=== PATIENT | male | born 1950 | race Caucasian/White ===

== ENCOUNTER 2024-01-29 03:25 | Inpatient (IN) ==
[2024-01-29] MEDS ORDERED: Piperacillin/Tazobac 3.375 BAG 3.375 GM/100 ML BAG IV ONE (03:31)
[2024-01-29] MEDS ORDERED: Morphine 10 MG/ML VIAL (1 ml) IV ONE ×2 (03:31→06:35)
[2024-01-29] MEDS ORDERED: Ondansetron 4 mg VIAL 2 MG/ML 2 ml VIAL IV ONE (03:34)
[2024-01-29] MEDS: Morphine 10 MG/ML VIAL (1 ml) IV ONE ×2 (03:53→06:39)
[2024-01-29] MEDS: Ondansetron 4 mg VIAL 2 MG/ML 2 ml VIAL IV ONE (03:57)
[2024-01-29] MEDS: Pantoprazole VIAL 40 MG VIAL IV ONE (04:00)
[2024-01-29] MEDS: PANTOPRAZOLE IV SCH (04:07)
[2024-01-29] MEDS: Lactated Ringers 1000 ml BAG 1,000 ML IV ONE (04:07)
[2024-01-29] MEDS: Piperacillin/Tazobac 3.375 BAG 3.375 GM/100 ML BAG IV ONE (04:07)
[2024-01-29] MEDS: NS 0.9% IV SCH (04:07)
[2024-01-29 04:09] LABS: ABS Basophils 0.1 10^3/uL (0.0-0.1); ABS Lymphocytes 1.8 10^3/uL (1.0-4.8); ABS Monocytes 0.8 10^3/uL (0.0-1.1); ABS Neutrophils 11.4 10^3/uL (1.5-7.6); Hematocrit 28.8 % (38-53); Hemoglobin 9.4 g/dL (13.2-16.3); Lymphocyte % 12.8 %; Mean Corpuscular Hemoglobin 32.8 pg (27-33); Mean Corpuscular Hgb Conc 32.7 g/dL (31-36); Mean Corpuscular Volume 100.4 fL (80-97); Mean Platelet Volume 8.9 fL (7.5-11.2); Platelet Count 255 10^3/uL (150-450); Red Blood Count 2.86 10^6/uL (4.06-5.63); Red Cell Distribution Width 13.7 % (12-17); White Blood Count 14.1 10^3/uL (3.6-10.2)
[2024-01-29 04:11] LABS: Activated Partial Thrombo Time 23.5 seconds (26.0-38.0); INR 1.72 (0.83-1.13)
[2024-01-29 04:43] LABS: Albumin 2.5 g/dL (3.2-5.2); Albumin/Globulin Ratio 1.1 (1-3); C Reactive Protein 11.27 mg/L (<8.01); Calcium 7.8 mg/dL (8.6-10.3); Creatinine, Serum 1.46 mg/dL (0.67-1.17); Globulin 2.2 g/dL (2-4); Potassium 5.6 mmol/L (3.5-5.0); Total Bilirubin 1.4 mg/dL (0.2-1.0); Total Protein 4.7 g/dL (6.4-8.9); eGFR CKD-EPI 50.8 (>60)
[2024-01-29 06:18] LABS: Hematocrit 21.3 % (38-53); Hemoglobin 6.8 g/dL (13.2-16.3)
[2024-01-29] MEDS ORDERED: Prochlorperazine 5 mg/ml 2 ml VIAL (10 mg) IV ONE (06:41)
[2024-01-29] MEDS: Prochlorperazine 5 mg/ml 2 ml VIAL (10 mg) IV ONE (06:45)
[2024-01-29] MEDS: Iodixanol (CONTRAST) 320 MG/ML 100 ML SDV IV ONE (07:14)
[2024-01-29] MEDS ORDERED: cefTRIAXone 1 gm/50 mL D5W 1 GM/50 ML BAG IV ONE (07:17)
[2024-01-29] MEDS: cefTRIAXone 1 gm/50 mL D5W 1 GM/50 ML BAG IV ONE (07:33)
[2024-01-29] MEDS: Octreotide Acetate 50 MCG in NS 0.9% 50 ML 50 ML IV ONE (08:24)
[2024-01-29] MEDS ORDERED: Phenylephrine IV 10 MG/ML 1 ml VIAL ONE (09:09)
[2024-01-29] MEDS ORDERED: Buffered Lidocaine 1% SYRIN 1 ml ONE (09:23)
[2024-01-29] MEDS ORDERED: Propofol 10 MG/ML 20 ML BTL ONE (09:50)
[2024-01-29] MEDS ORDERED: Etomidate 20 mg/10 ml 2 MG/ML 10 ml VIAL ONE (09:50)
[2024-01-29] MEDS ORDERED: Rocuronium 50 mg VIAL 10 mg/ml 5 ml VIAL (50 mg) ONE (09:50)
[2024-01-29] MEDS ORDERED: Lidocaine 2% PF 5 ML VIAL ONE (09:50)
[2024-01-29] MEDS ORDERED: Midazolam 2 mg/2 ml VIAL 1 mg/ml 2 ml VIAL (2 mg) ONE (09:51)
[2024-01-29] MEDS ORDERED: Albumin Human 25% 25 GM/100 ML BTL IV ONE (10:01)
[2024-01-29] MEDS ORDERED: Norepinephrine IV 1 MG/ML 4 ML VIAL ONE ×2 (10:11→10:35)
[2024-01-29 10:18] LABS: Hematocrit 31.4 % (38-53); Hemoglobin 9.8 g/dL (13.2-16.3)
[2024-01-29] MEDS ORDERED: fentaNYL 100 mcg/2 ml 50 MCG/ML VIAL ONE (10:26)
[2024-01-29] MEDS ORDERED: Propofol 10 mg/ml 100 ML BTL 1,000 MG/100 ML BTL ONE (10:47)
[2024-01-29 10:53] LABS: INR 1.65 (0.83-1.13)
[2024-01-29] MEDS: Propofol 10 mg/ml 100 ML BTL 1,000 MG/100 ML BTL IV SCH (11:09)
[2024-01-29 11:13] LABS: ALT 110 U/L (7-52); AST 182 U/L (13-39); Albumin 2.6 g/dL (3.2-5.2); Alkaline Phosphatase 86 U/L (35-149); Blood Urea Nitrogen 72 mg/dL (6-24); CO2 Carbon Dioxide < 7 mmol/L (22-32); Calcium 8.1 mg/dL (8.6-10.3); Chloride 110 mmol/L (101-111); Creatinine, Serum 1.72 mg/dL (0.67-1.17); Globulin 2.6 g/dL (2-4); Glucose 83 mg/dL (70-100); Potassium 5.4 mmol/L (3.5-5.0); Sodium 141 mmol/L (135-145); Total Protein 5.2 g/dL (6.4-8.9); eGFR CKD-EPI 41.7 (>60)
[2024-01-29] MEDS: Norepinephrine 4 MG/250mL D5W 4,000 MCG/250 ML BAG IV SCH (11:47)
[2024-01-29] MEDS: Norepinephrine 4 MG/250mL D5W 4,000 MCG/250 ML BAG IV ONE (11:53)
[2024-01-29] MEDS: Octreotide Acetate 500 MCG in NS 0.9% 100 ml BAG 100 ML IV SCH (12:10)
[2024-01-29 12:19] LABS: PCO2 Arterial 43 mmHg (35-45); PO2 Arterial 111 mmHg (80-100)
[2024-01-29] MEDS: Sodium Bicarbonate 8.4% VIAL 1 MEQ/ML 50 ml VIAL (50 meq) ONE (12:58)
[2024-01-29] MEDS: Sodium Bicarbonate 8.4% SYR 50 ml SYRINGE IV ONE (12:58)
[2024-01-29 14:11] VITALS: BP 79/48
[2024-01-29] MEDS ORDERED: LORazepam 2 mg VIAL 1 ml IV PUSH PRN (14:19)
[2024-01-29] MEDS ORDERED: Atropine 1% (ORAL/SL) 15 ML BTL SL PRN (14:20)
[2024-01-29] MEDS: Erythromycin Lactobionate IV 250 MG in NS 0.9% 100 ml BAG 100 ML IVPB ONE (14:45)
[2024-01-29] MEDS: Chlorhexidine MOUTHWASH 0.12% 15 ML UDC TOPICAL SCH (15:23)
[2024-01-30] MEDS ORDERED: cefTRIAXone 2 gm/50 mL D5W 2 GM/50 ML BAG IV SCH (07:30)
== END 2024-01-29 14:57 | disposition expired | DRG 196 ==
LOC: ED 03:25 → ICU 08:55 → OR 08:55 → ICU 10:56
PROVIDERS: ADMIT Internal Medicine Gastroenterology; ATTEND Internal Medicine Pulmonary Disease
PROC: O.GIEGD (2024-01-29 14:05)